=== PATIENT | male | born 1975 | race Asian ===

== ENCOUNTER 2017-01-24 18:47 | Emergency (ER) | payer BC ==
[~2017-01-24] VITALS: Ht 185.4 cm; Wt 83.9 kg
== END 2017-01-24 22:26 | disposition home or self-care (01) ==
LOC: ED 18:47
DX: M54.9 Dorsalgia, unspecified (principal); X50.9XXA Other and unspecified overexertion or strenuous movements or postures, initial encounter
CPT/HCPCS: 81000; 99283